=== PATIENT | female | born 1965 | race Two or more races ===

== ENCOUNTER 2018-02-20 19:08 | Observation (INO) | payer MEDICAID ==
[2018-02-20 22:24] LABS: ADD MAN DIFF? NO
[2018-02-20 22:26] LABS: WHITE BLOOD COUNT 8.4 10^3/ul (4.8-10.8)
[2018-02-20 22:26] LABS: BASOPHILS % 0.4 % (0.0-2.0); EOSINOPHILS # 0.3 10^3/ul (0.0-0.5); EOSINOPHILS % 3.2 % (0.0-7.0); HEMATOCRIT 42.3 % (37.0-47.0); HEMOGLOBIN 14.6 g/dl (12.0-16.0); LYMPHOCYTES # 3.7 10^3/ul (0.8-2.9); LYMPHOCYTES % 44.1 % (15.0-51.0); MEAN CORPUSCULAR HEMOGLOBIN 30.4 pg (29.0-33.0); MEAN CORPUSCULAR HGB CONC 34.5 g/dl (32.0-37.0); MEAN CORPUSCULAR VOLUME 88.1 fl (82.0-101.0); MEAN PLATELET VOLUME 10.8 fl (7.4-10.4); MONOCYTE # 0.5 10^3/ul (0.3-0.9); MONOCYTES % 6.5 % (0.0-11.0); NEUTROPHIL # 3.8 10^3/ul (1.6-7.5); NEUTROPHILS % 45.4 % (39.0-77.0); PLATELET COUNT 227 10^3/UL (140-415); RED CELL DISTRIBUTION WIDTH 11.9 % (11.5-14.5)
[2018-02-20] MEDS: ONDANSETRON 4 MG INJ IV (22:30)
[2018-02-20] MEDS: ASPIRIN 81 MG TAB PO (22:30)
[2018-02-20] MEDS: morphine 4 MG/ML VIAL IV (22:30)
[2018-02-20] MEDS: SOD CHLORIDE 0.9% 1,000 ML IV (22:30)
[2018-02-20 22:42] LABS: ANION GAP 11 (5-13); BLOOD UREA NITROGEN 14 mg/dl (7-20); CALCIUM 9.8 mg/dl (8.4-10.2); CARBON DIOXIDE 26 mmol/L (21-31); CHLORIDE 102 mmol/L (97-110); Estimated GFR > 60 mL/min (>60); GLUCOSE 144 mg/dl (70-220); POTASSIUM 3.6 mmol/L (3.5-5.1); SODIUM 139 mmol/L (135-144)
[2018-02-20 22:54] LABS: B-TYPE NATRIURETIC PEPTIDE 38 PG/ML (0-125); TROPONIN-I < 0.012 ng/ml (0.000-0.120)
[2018-02-20 23:04] LABS: ALANINE AMINOTRANSFERASE 286 IU/L (13-69); ALBUMIN 5.1 g/dl (3.3-4.9); ALKALINE PHOSPHATASE 124 IU/L (42-121); ASPARTATE AMINO TRANSFERASE 156 IU/L (15-46); BILIRUBIN,INDIRECT 0.3 mg/dl (0-1.1); BILIRUBIN,TOTAL 0.3 mg/dl (0.2-1.3); LIPASE 124 U/L (23-300); TOTAL PROTEIN 7.7 g/dl (6.1-8.1)
[2018-02-20 23:24] LABS: HAAIG REFLEX REFLEX FILED
[2018-02-20] MEDS ORDERED: DOCUSATE SODIUM 100 MG CAP PO (23:30)
[2018-02-20] MEDS ORDERED: morphine 2 MG INJ IV (23:30)
[2018-02-20] MEDS ORDERED: ACETAMINOPHEN 325 MG TAB PO ×2 (23:30)
[2018-02-20] MEDS ORDERED: ONDANSETRON 4 MG INJ IV ×2 (23:30)
[2018-02-20] MEDS ORDERED: NITROGLYCERIN (SL) 0.4 MG TAB SL (23:30)
[2018-02-20] MEDS ORDERED: BISACODYL (EC) 5 MG TAB PO (23:30)
[2018-02-20] MEDS ORDERED: NACL 0.9% 3 ML SYG IV (23:30)
[2018-02-21 00:02] LABS: HEPATITIS B SURFACE ANTIGEN NEGATIVE (NEGATIVE)
[2018-02-21 00:20] LABS: HEPATITIS B CORE ANTIBODY NEGATIVE (NEGATIVE); HEPATITIS C VIRAL ANTIBODY NEGATIVE (NEGATIVE)
[2018-02-21] MEDS: AL HYDROX/MG HYDROX/SIMETH 30 ML CUP PO (03:19)
[2018-02-21 05:57] LABS: ADD MAN DIFF? NO
[2018-02-21 06:01] LABS: BASOPHILS % 0.4 % (0.0-2.0); EOSINOPHILS # 0.2 10^3/ul (0.0-0.5); EOSINOPHILS % 2.8 % (0.0-7.0); HEMATOCRIT 36.8 % (37.0-47.0); HEMOGLOBIN 12.7 g/dl (12.0-16.0); LYMPHOCYTES # 2.4 10^3/ul (0.8-2.9); LYMPHOCYTES % 33.7 % (15.0-51.0); MEAN CORPUSCULAR HEMOGLOBIN 30.6 pg (29.0-33.0); MEAN CORPUSCULAR HGB CONC 34.5 g/dl (32.0-37.0); MEAN CORPUSCULAR VOLUME 88.7 fl (82.0-101.0); MEAN PLATELET VOLUME 10.8 fl (7.4-10.4); MONOCYTE # 0.6 10^3/ul (0.3-0.9); MONOCYTES % 7.6 % (0.0-11.0); NEUTROPHILS % 55.4 % (39.0-77.0); PLATELET COUNT 200 10^3/UL (140-415); RED BLOOD COUNT 4.15 10^6/ul (4.20-5.40)
[2018-02-21 06:01] LABS: WHITE BLOOD COUNT 7.2 10^3/ul (4.8-10.8)
[2018-02-21 06:25] LABS: ALANINE AMINOTRANSFERASE 211 IU/L (13-69); ALBUMIN 4.1 g/dl (3.3-4.9); ALBUMIN/GLOBULIN RATIO 1.86; ALKALINE PHOSPHATASE 87 IU/L (42-121); ANION GAP 11 (5-13); ASPARTATE AMINO TRANSFERASE 106 IU/L (15-46); BILIRUBIN,INDIRECT 0.4 mg/dl (0-1.1); BILIRUBIN,TOTAL 0.4 mg/dl (0.2-1.3); BLOOD UREA NITROGEN 14 mg/dl (7-20); CALCIUM 9.3 mg/dl (8.4-10.2); CARBON DIOXIDE 25 mmol/L (21-31); CHLORIDE 105 mmol/L (97-110); CHOL/HDL RATIO 5.8 RATIO; CHOLESTEROL 209 mg/dl (100-200); CREATININE 0.63 mg/dl (0.44-1.00); Estimated GFR > 60 mL/min (>60); GLUCOSE 160 mg/dl (70-220); HDL CHOLESTEROL 36 mg/dl (37-92); LDL CHOLESTEROL,CALCULATED 133 mg/dl; MAGNESIUM 1.9 mg/dl (1.7-2.5); POTASSIUM 4.4 mmol/L (3.5-5.1); SODIUM 141 mmol/L (135-144); TOTAL PROTEIN 6.3 g/dl (6.1-8.1); TRIGLYCERIDES 202 mg/dl (0-149)
[2018-02-21 06:29] LABS: CREATINE KINASE 54 IU/L (23-200)
[2018-02-21 06:34] LABS: CK INDEX 0.7
[2018-02-21 06:36] LABS: CK-MB 0.36 ng/ml (0.0-2.4); TROPONIN-I < 0.012 ng/ml (0.000-0.120)
[2018-02-21 08:08] LABS: HEMOGLOBIN A1C 7.4 % (0-5.9)
[2018-02-21] MEDS: ASPIRIN 81 MG TAB PO (09:37)
[2018-02-21 12:02] LABS: CREATINE KINASE 53 IU/L (23-200)
[2018-02-21 12:13] LABS: CK INDEX 0.4; CK-MB < 0.22 ng/ml (0.0-2.4); TROPONIN-I < 0.012 ng/ml (0.000-0.120)
== END 2018-02-21 16:50 | disposition home or self-care (01) ==
LOC: 6WM 23:17 → E/R 19:08
DX: R07.9 Chest pain, unspecified (principal); E11.9 Type 2 diabetes mellitus without complications; Z79.84 Long term (current) use of oral hypoglycemic drugs; E78.5 Hyperlipidemia, unspecified; R74.0 Nonspecific elevation of levels of transaminase and lactic acid dehydrogenase [LDH]
CPT/HCPCS: 36415; 71045; 76705; 80048; 80053; 80061; 80076; 82550; 82553; 83036; 83690; 83735; 83880; 84443; 84484; 85025; 86704; 86709; 86803; 87340; 93005; 93306; 96361; 96374; 96375; 99285-25